=== PATIENT | male | born 1945 | race Caucasian/White ===

== ENCOUNTER 2017-07-28 10:02 | Observation (INO) ==
--- NOTE | 2017-07-28 12:01 | Electrophysiology H & P ---
<Ray Singh R - Last Filed: 07/28/17 11:57> Date of Encounter: 07/28/17 Time of Encounter: 11:57 Assessment and Plan (1) Encounter for monitoring anti-arrhythmic therapy Current Visit: Yes Status: Acute Admitted for Rythmol initation 150mg [id number] due to symptomatic PAF. Anticoagulated on Eliquis, no missed doses in past 30 days. Continue Lopressor 50mg BID. Echo 01/2016 EF preserved. Mild mitral regurgitation. Mild-moderate pulmonic regurgitation. Normal left atrial size. Stress test 05/2017 negative for ischemia or infarct. Check CBC, BMP, Mag, obtain baseline EKG. Daily EKGs while inpt to monitor QRS. Will need monitored for 5 doses. I will discuss and review with Dr. Pravin Altamirano and make changes as necessary. (2) Atrial fibrillation Current Visit: No Status: Chronic As above, rythmol initiation, continue BB, anticoagulated on Eliquis with no missed doses in 30 days. Qualifiers: Atrial fibrillation type: paroxysmal Qualified Code(s): I48.0 - Paroxysmal atrial fibrillation History of Present Illness Chief complaint: dizziness HPI: Mr. Vargas is a 71 year old male with PMH of HTN, PAF, TIA that presents today for planned antiarrhythmic initiation, Rythmol 150mg [id number]. His chief complaint is dizziness when in A-Fib. He was previously on amiodarone, experienced worsening tremors and amiodarone was stopped, has not taken since May. He reports compliance with Eliquis for >30 days, no missed doses. He denies chest pain, palpitations or dyspnea. Prior CV testing: TTE 01/30/16: Impressions: Normal LV systolic function, LVEF 55-60%. Mild concentric left ventricular hypertrophy. Indeterminate diastolic function due to atrial fibrillation. Normal right ventricular structure and function. No evidence of intracardiac shunting with agitated saline contrast. Mild mitral regurgitation. Mild-moderate pulmonic regurgitation. Unable to estimate RVSP due to lack of TR jet. Pharmacologic nuclear stress test 06/19/17: Perfusion imaging was negative for ischemia or infarct. Gated EF 48%. Past Med Surg Social Fam HX - Past Medical History Medical history: atrial fibrillation, hypertension, TIA, other Psychiatric history: no psych history - Past Surgical History Surgical History: other - Social History Smoking Status: Never smoker Smokeless Tobacco Status: No Alcohol use: none Drug use: none - Family History Father History Unknown: Yes Adopted: No Family Member Ethnicity: Non- Living Status: Cause of : kidney cancer Hx Family Cardiac Disorders: Yes (cabg with stents) Medications and Allergies Amitriptyline [Elavil] 50 mg PO HS 01/30/16 [History] Omeprazole [PriLOSEC] 20 mg PO DAILY 01/30/16 [History] Primidone [Mysoline] 25 mg PO DAILY 01/30/16 [History] Tamsulosin [Flomax] 0.4 mg PO DAILY 01/30/16 [History] hydroCHLOROthiazide [Hydrochlorothiazide] 12.5 mg PO DAILY 01/30/16 [History] Apixaban [Eliquis] 5 mg PO BID #30 tablet 02/01/16 [Rx] Aspirin 81 mg PO DAILY #30 tab.chew 02/01/16 [Rx] Metoprolol Tartrate [Lopressor] 50 mg PO BID 07/28/17 [History] 3 Allergy/AdvReac Type Severity Reaction Status Date / Time No Known Allergies Allergy Verified 01/30/16 11:57 All Systems Review: A 10-system review of systems was performed and is negative for pertinent findings except as documented above in the HPI. - Cardiovascular Cardiovascular: as per HPI, lightheadedness - Neurological Neurological: dizziness Physical Examination General: Conversant, No Apparent Distress HEENT: Atraumatic, Normocephaly, Mucus Membranes Moist Neck: No JVD, Normal carotid pulses Cardiac: Other (irregularly irregular) Lungs: Normal Breath Sounds, No Wheeze, Rales, Rhonchi Neuro: Alert and responsive, No focal deficits noted Abdomen: Soft, Non-Tender Skin: No rashes noted on visualized skin Musculoskeletal: No Chest Wall Tenderness Extremities: No Clubbing, No Cyanosis, No Edema, Normal Pulses Results Active Medications Propafenone HCl (Rhythmol) 150 mg PO Q8HR JENNY Stop: 01/27/18 16:01 - Imaging and Cardiology Stress Test: report reviewed Echo: report reviewed - VTE Reasons for not Prescribing Prophylaxis: Not indicated-Anticoagulated or INR therapeutic <Pravin Altamirano - Last Filed: 07/28/17 15:00> Date of Encounter: 07/28/17 - Attending Attestation I have personally performed a face to face evaluation on this patient. I have reviewed and agree with the care plan. History and Exam by me shows: Recurrent PAF, had previously been on amio but had side effects. Here for rythmol initiation. History of Present Illness HPI: Mr. Vargas is a 71 year old male All Systems Review: A 10-system review of systems was performed and is negative for pertinent findings except as documented above in the HPI. Physical Examination Vital Signs, Last 4 Hours Temp Pulse Resp BP Pulse Ox 07/28/17 13:12 62 135/85 07/28/17 12:37 97.5 F L 73 18 147/99 98 Results 07/28/17 12:13 07/28/17 12:13 Lab Results 07/28/17 07/28/17 12:13 12:13 WBC 6.9 Hgb 15.0 Hct 43.2 Plt Count 236 Sodium 133 L Potassium 3.8 Chloride 99 Carbon Dioxide 28 BUN 16 Creatinine 1.24 Glucose 117 H Calcium 9.3 Magnesium 2.0
[2017-07-28 12:18] LABS: Basophils # 0.1 K/mcL (0.0-0.2); Basophils % 1.2 %; Eosinophils # 0.3 K/mcL (0.0-0.6); Eosinophils % 3.9 %; Hematocrit 43.2 % (37.5-50.1); Immature Granulocytes % 0.1 % (0-4); Mean Corpuscular HGB Conc 34.7 g/dL (31.6-35.5); Mean Corpuscular Hemoglobin 30.5 pg (28.0-33.3); Mean Corpuscular Volume 87.8 fL (83.0-100.0); Mean Platelet Volume 10.1 fL (9.4-12.4); Monocytes % 14.6 %; Neutrophils # 3.6 K/mcL (1.6-8.9); Platelet Count 236 K/mcL (140-400); Red Blood Count 4.92 M/mcL (4.19-5.50); Red Cell Distribution Width 13.2 % (11.5-14.5); Segmented Neutrophils % 51.2 %
[2017-07-28 12:43] LABS: BUN/Creatinine Ratio 13 (6-26); Blood Urea Nitrogen 16 mg/dL (8-23); Calcium 9.3 mg/dL (8.6-10.3); Carbon Dioxide 28 mEq/L (23-29); Chloride 99 mEq/L (98-107); Glucose 117 mg/dL (70-105); Osmolality,Calculated 278 (280-300); Potassium 3.8 mEq/L (3.5-5.1); Sodium 133 mEq/L (136-145); eGFR For African Americans > 60 (> 60); eGFR For Non-African Americans 57 (> 60)
[2017-07-28] MEDS: Apixaban 5 MG TABLET PO SCH (20:04)
--- NOTE | 2017-07-28 21:07 | Electrocardiograph Report ---
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
[2017-07-29] MEDS: Apixaban 5 MG TABLET PO SCH ×2 (08:30→21:32)
[2017-07-29] MEDS: Aspirin 81 MG TAB.CHEW PO SCH (08:30)
[2017-07-29] MEDS: Primidone 50 MG TABLET PO SCH (08:31)
[2017-07-29] MEDS: hydroCHLOROthiazide 25 MG TABLET PO SCH (08:31)
--- NOTE | 2017-07-29 11:07 | Electrophysiology ProgressNote ---
Date of Encounter: 07/29/17 Time of Encounter: 10:57 Assessment and Plan (1) Encounter for monitoring anti-arrhythmic therapy Current Visit: Yes Status: Acute Admitted for Rythmol initation 150mg [id number] due to symptomatic PAF. S/P 3 Rythmol doses, remains in A-Fib. Continue Lopressor 50mg BID. Echo 01/2016 EF preserved. Mild mitral regurgitation. Mild-moderate pulmonic regurgitation. Normal left atrial size. Stress test 05/2017 negative for ischemia or infarct. CBC, BMP, Mag stable. Baseline EKG 07/28/17 A-Fib, rate 69, QRS 101ms. EKG 07/29/17 A-Fib, rate 79, QRS 109ms. Stable. Daily EKGs while inpt to monitor QRS. 5th dose of Rythmol will be tonight. If continues to be in A-Fib will need DCCV tomorrow. Anticoagulated on Eliquis, no missed doses in past 30 days, so no MAX warranted. Tentative D/C tomorrow if converts to SR. (2) Atrial fibrillation Current Visit: No Status: Chronic As above, rythmol initiation, continue BB, anticoagulated on Eliquis with no missed doses in 30 days. Qualifiers: Atrial fibrillation type: paroxysmal Qualified Code(s): I48.0 - Paroxysmal atrial fibrillation Discussion w patient/family: The assessment and plan as outlined above was discussed with the patient and/or family members who expressed understanding and agreement. All questions were answered. Thank you for involving us in the care of your patient. Please call with any questions. I will discuss all the above with Dr. Pravin Altamirano and make changes as necessary. Subjective Principal diagnosis: PAF Interval history: s/p 3 doses of Rythmol. Pt remains in A-Fib. Denies any cardiac complaints this AM. Objective Vital Signs, Last 4 Hours Temp Pulse Resp BP Pulse Ox 07/29/17 10:20 98.1 F 80 14 117/75 93 Vital Signs Temp Pulse Resp BP Pulse Ox 07/29/17 10:20 98.1 F 80 14 117/75 93 07/29/17 05:00 98 F 72 18 117/80 95 07/29/17 01:00 98 F 78 18 118/77 95 07/28/17 20:15 97 07/28/17 19:18 98 F 65 18 120/82 96 07/28/17 15:13 97.9 F 71 17 125/83 97 07/28/17 13:12 62 135/85 07/28/17 12:37 97.5 F L 73 18 147/99 98 Intake and Output 07/28/17 07/29/17 07/29/17 23:59 07:59 15:59 Intake Total 120 / 120 500 / 500 Balance 120 / 120 500 / 500 Intake: Oral 120 / 120 500 / 500 Other: Meal Breakfast Percent of Meal Consumed 100% # Voids 1 Weight 95.6 kg Patient Weight 07/29/17 23:59 Weight 95.6 kg General: Conversant, No Apparent Distress HEENT: Atraumatic, Normocephaly, Mucus Membranes Moist Neck: No JVD, Normal carotid pulses Cardiac: Other (irregularly irregular) Lungs: Normal Breath Sounds, No Wheeze, Rales, Rhonchi Neuro: Alert and responsive, No focal deficits noted Abdomen: Soft, Non-Tender Skin: No rashes noted on visualized skin Musculoskeletal: No Chest Wall Tenderness Extremities: No Clubbing, No Cyanosis, No Edema, Normal Pulses Results 07/28/17 12:13 07/28/17 12:13 Lab Results 07/28/17 07/28/17 12:13 12:13 WBC 6.9 Hgb 15.0 Hct 43.2 Plt Count 236 Sodium 133 L Potassium 3.8 Chloride 99 Carbon Dioxide 28 BUN 16 Creatinine 1.24 Glucose 117 H Calcium 9.3 Magnesium 2.0 Short CBC 07/28/17 Range/Units 12:13 WBC 6.9 (4.3-11.1) K/mcL Hgb 15.0 (12.9-16.9) g/dL Hct 43.2 (37.5-50.1) % Plt Count 236 (140-400) K/mcL Neutrophils # 3.6 (1.6-8.9) K/mcL BMP 07/28/17 Range/Units 12:13 Sodium 133 L (136-145) mEq/L Potassium 3.8 (3.5-5.1) mEq/L Chloride 99 (98-107) mEq/L Carbon Dioxide 28 (23-29) mEq/L BUN 16 (8-23) mg/dL Creatinine 1.24 (0.70-1.30) mg/dL Glucose 117 H (70-105) mg/dL Calcium 9.3 (8.6-10.3) mg/dL Active Medications Amitriptyline HCl (Elavil) 50 mg PO HS [facility] Stop: 01/27/18 21:01 Last Admin: 07/28/17 20:03 Dose: 50 mg Apixaban (Eliquis) 5 mg PO BID JENYN Stop: 01/27/18 21:01 Last Admin: 07/29/17 08:30 Dose: 5 mg Aspirin (Aspirin) 81 mg PO DAILY JENNY Stop: 01/28/18 09:01 Last Admin: 07/29/17 08:30 Dose: 81 mg Atorvastatin Calcium (Lipitor) 40 mg PO HS [facility] Stop: 01/27/18 21:01 Last Admin: 07/28/17 20:04 Dose: 40 mg Hydrochlorothiazide (Hydrochlorothiazide) 12.5 mg PO DAILY [facility] Stop: 01/28/18 09:01 Last Admin: 07/29/17 08:31 Dose: 12.5 mg Metoprolol Tartrate (Lopressor) 50 mg PO BID [facility] Stop: 01/27/18 21:01 Last Admin: 07/29/17 08:31 Dose: 50 mg Omeprazole (Prilosec) 20 mg PO DAILY [facility] PRN Reason: Protocol Stop: 01/28/18 09:01 Last Admin: 07/29/17 08:31 Dose: 20 mg Primidone (Mysoline) 25 mg PO DAILY [facility] Stop: 01/28/18 09:01 Last Admin: 07/29/17 08:31 Dose: 25 mg Propafenone HCl (Rhythmol) 150 mg PO Q8HR [facility] Stop: 01/27/18 16:01 Last Admin: 07/29/17 08:30 Dose: 150 mg Tamsulosin HCl (Flomax) 0.4 mg PO DAILY [facility] PRN Reason: Protocol Stop: 01/28/18 09:01 Last Admin: 07/29/17 08:30 Dose: 0.4 mg - EKG Interpretation EKG results cardiology: personally reviewed, other (24 hr tele AVG HR 84, A-Fib. ) - VTE Reasons for not Prescribing Prophylaxis: Not indicated-Anticoagulated or INR therapeutic Consult Discharge Plan - Plan Referrals: Carlos Duncan DO [Primary Care Provider] - (web request sent on 07/29/17)
--- NOTE | 2017-07-29 16:45 | Electrocardiograph Report ---
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
[2017-07-30] MEDS: Apixaban 5 MG TABLET PO SCH (08:20)
[2017-07-30] MEDS: Aspirin 81 MG TAB.CHEW PO SCH (08:20)
[2017-07-30] MEDS: hydroCHLOROthiazide 25 MG TABLET PO SCH (08:20)
[2017-07-30] MEDS: Primidone 50 MG TABLET PO SCH (08:20)
--- NOTE | 2017-07-30 10:08 | Event Note ---
Date of Encounter: 07/30/17 Time of Encounter: 10:07 - Cardiology Event Note Pt remains in A-Fib. EKGs reviewed--QRS stable s/p 6 doses of Rythmol. No missed doses of Eliquis in the past 30 days. Plan for DCCV today. If successful conversion to SR, plan to d/c home later today.
[2017-07-30 10:16] VITALS: BP 128/92
[2017-07-30] MEDS ORDERED: *HR* Midazolam HCl 5 MG/5 ML VIAL IVP ONE (14:27)
[2017-07-30] MEDS ORDERED: 0.9 % Sodium Chloride 1,000 ML ONE (14:27)
[2017-07-30] MEDS ORDERED: *HR* FentaNYL (PF) 250 MCG/5 ML VIAL ONE (14:27)
--- NOTE | 2017-07-30 14:38 | Pre-Sedation Evaluation ---
Pre-sedation evaluation - Pre-sedation checklist Date of procedure: 07/30/17 Procedure: cv Recent Vitals: Last Vital Signs Temp 97.9 F 07/30/17 10:15 Pulse 88 07/30/17 10:15 Resp 16 07/30/17 10:15 BP 128/92 07/30/17 10:15 Pulse Ox 95 07/30/17 10:15 H&P (including ROS) documented in medical record: Yes Previous reaction to sedatives/anesthetics: No Dietary Status: NPO after Midnight Airway Assessment: Patient can open mouth completely, TMJ function normal Dentition: No loose teeth or bridges Possible difficult airway: No ASA Classification *see protocol: CLASS II-Mild systemic disease Plan of Care: Pt appropriate candidate for procedure/moderate/conscious sedation , Risks/benefits of procedure/sedation discussed w/ patient/family
--- NOTE | 2017-07-30 15:27 | Discharge Summary ---
Date of Encounter: 07/30/17 Time of Encounter: 15:25 - Discharge Diagnosis (1) Encounter for monitoring anti-arrhythmic therapy Priority: Primary Status: Acute (2) Atrial fibrillation Priority: Primary Status: Chronic Qualifiers: Atrial fibrillation type: paroxysmal Qualified Code(s): I48.0 - Paroxysmal atrial fibrillation - Discharge Medications Home Medications: Amitriptyline [Elavil] 50 mg PO HS 01/30/16 [History] Omeprazole [PriLOSEC] 20 mg PO DAILY 01/30/16 [History] Primidone [Mysoline] 25 mg PO DAILY 01/30/16 [History] Tamsulosin [Flomax] 0.4 mg PO DAILY 01/30/16 [History] hydroCHLOROthiazide [Hydrochlorothiazide] 12.5 mg PO DAILY 01/30/16 [History] Apixaban [Eliquis] 5 mg PO BID #30 tablet 02/01/16 [Rx] Aspirin 81 mg PO DAILY #30 tab.chew 02/01/16 [Rx] Metoprolol Tartrate [Lopressor] 50 mg PO BID 07/28/17 [History] Propafenone [Rhythmol] 150 mg PO Q8HR tablet 07/30/17 [Rx] Allergies/Adverse Reactions: 3 Allergy/AdvReac Type Severity Reaction Status Date / Time No Known Allergies Allergy Verified 01/30/16 11:57 Procedures/tests Complete & Pending: Procedures Performed prior 72 hours Category Date Time Status CL Cardioversion [CL] Routine Lead Sustainability Specialist 07/30/17 09:15 Ordered EKG [ECG 12 lead ECG] [ECG] AM 0600 Y 07/29/17 06:00 Completed EKG [ECG 12 lead ECG] [ECG] AM 0600 Y 07/30/17 06:00 Completed EKG [ECG 12 lead ECG] [ECG] Routine Y 07/30/17 15:20 Ordered EKG [ECG 12 lead ECG] [ECG] Stat Y 07/28/17 11:54 Completed Date of admission: 07/28/17 10:32 Primary care physician: Carlos Duncan Discharging clinician: Ray Singh Anticipated date of discharge: 07/30/17 - Patient Status Disposition: Home, Self-Care Condition: Fair Functional capacity at discharge: independent ambulation Overall status at discharge: patient is back to baseline - Discharge Instructions Follow Up With: Kristie Medina PROCESSING ARCHIVIST [Partnered Physician] - 08/03/17 10:35 am - Diet and Activity Activity: increase activity as tolerated Diet: low fat, low cholesterol - Hospital Course Hospital course: Mr. Vargas is a 71 year old male admitted for Rythmol initation 150mg [id number] due to symptomatic PAF. Anticoagulated on Eliquis, no missed doses in past 30 days. S/P 6 Rythmol doses. Underwent successful DCCV today, now in sinus rhythm with 1st degree block. On Lopressor 50mg BID. CBC, BMP, Mag stable. Daily EKGs show stable QRS. Triglycerides 335--pt is currently not on statin, states he would like to try dietary modification first. Pt denies acute cardiac complaints. Erx sent for Rythmol. Pt being discharged home in stable condition. Will coordinate outpt follow-up. - Time Spent with Patient Total time spent providing and/or coordinating discharge services: Less than 30 minutes Physical Examination Vital Signs Temp Pulse Resp BP Pulse Ox 07/30/17 10:15 97.9 F 88 16 128/92 95 07/30/17 06:23 97.7 F 87 16 124/80 96 07/30/17 03:36 97.5 F L 79 17 107/71 96 07/29/17 23:01 97.8 F 80 17 120/73 95 07/29/17 20:41 98.1 F 80 17 119/80 93 07/29/17 16:23 97.5 F L 67 16 126/81 96 Intake and Output 07/29/17 07/30/17 07/30/17 23:59 07:59 15:59 Other: Meal NPO LUNCH # Voids 1 1 Weight 95.424 kg Patient Weight 07/30/17 23:59 Weight 95.424 kg General: Conversant, No Apparent Distress HEENT: Atraumatic, Normocephaly, Mucus Membranes Moist Neck: No JVD, Normal carotid pulses Cardiac: Reg Rate and Rhythm, Normal S1 and S2, No Murmur Lungs: Normal Breath Sounds, No Wheeze, Rales, Rhonchi Neuro: Alert and responsive, No focal deficits noted Abdomen: Soft, Non-Tender Skin: No rashes noted on visualized skin Musculoskeletal: No Chest Wall Tenderness Extremities: No Clubbing, No Cyanosis, No Edema, Normal Pulses - VTE Reasons for not Prescribing Prophylaxis: Not indicated-Anticoagulated or INR therapeutic
--- NOTE | 2017-07-30 20:29 | Electrocardiograph Report ---
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
--- NOTE | 2017-07-31 06:38 | Electrocardiograph Report ---
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
== END 2017-07-30 18:16 | disposition home or self-care (01) ==
LOC: 2ANU
PROVIDERS: ADMIT Internal Medicine Clinical Cardiac Electrophysiology; ATTEND Internal Medicine Clinical Cardiac Electrophysiology

== ENCOUNTER 2017-08-30 15:41 | Observation (INO) ==
--- NOTE | 2017-08-30 16:08 | Emergency Department Note ---
Disposition Clinical Impression: Near syncope Atrial fibrillation Qualifiers: Atrial fibrillation type: chronic Qualified Code(s): I48.2 - Chronic atrial fibrillation Disposition: Admitted As Inpatient Condition: Fair Time of Disposition: 17:45 SOB HPI - General Chief Complaint: ED Shortness of Breath/Dyspnea Stated Complaint: MISHEL Time Seen by Provider: 08/30/17 15:51 Source: patient Mode of arrival: ambulatory Limitations: no limitations Nursing Notes Reviewed: Yes Vital Signs Reviewed: Yes - History of Present Illness 71-year-old male with past medical history of persistent atrial fibrillation status post cardioversion on 08/24/17 presents to emergency room with complaint of shortness of breath, diaphoresis, weakness for one episode this afternoon starting at approximately 2:15. Currently during time of interview, patient is asymptomatic and has only mild complaint of weakness. He has had episodes like these in the past when he goes and atrophic fibrillation with rapid jugular response, however he does state this one is worse than usual. He states that during his A. fib RVR episodes he does not feel any symptoms of palpitations, chest pain. He states that he did make a follow-up appointment with his primary care physician on Thursday when it was noted he was back and atrial fibrillation however was rate controlled by that time. He is anticoagulated on Eliquis and takes amiodarone for his rate control. Denies any current symptoms of chest pain, shortness breath, fevers, chills, nausea, vomiting, does admit to mild cough during these episodes. Pt Subjective Complaint: shortness of breath - Related Data Home Medications Medication Instructions Recorded Confirmed Amitriptyline [Elavil] 50 mg PO HS 01/30/16 08/30/17 Omeprazole [PriLOSEC] 20 mg PO DAILY 01/30/16 08/30/17 Primidone [Mysoline] 25 mg PO DAILY 01/30/16 08/30/17 Tamsulosin [Flomax] 0.4 mg PO DAILY 01/30/16 08/30/17 hydroCHLOROthiazide 12.5 mg PO DAILY 01/30/16 08/30/17 [Hydrochlorothiazide] Ascorbic Acid [Vitamin C] 500 mg PO DAILY 08/17/17 08/30/17 Cholecalciferol (D-3) [Vitamin D] 1,000 unit PO DAILY 08/17/17 08/30/17 Multivitamin [One Daily 1 each PO DAILY 08/17/17 08/30/17 Multivitamin] Potassium 99 mg PO DAILY 08/17/17 08/30/17 Turmeric Root Extract [Turmeric] 1,000 mg PO DAILY 08/17/17 08/30/17 Ubidecarenone [Co Q-10] 200 mg PO DAILY 08/17/17 08/30/17 Previous Rx's Medication Instructions Recorded Apixaban [Eliquis] 5 mg PO BID #30 tablet 02/01/16 Amiodarone [Cordarone] 200 mg PO BID #60 tablet 08/24/17 Metoprolol XL (24 HR) Succ [Toprol 75 mg PO DAILY #45 tab.er.24h 08/24/17 Xl] Allergies Allergy/AdvReac Type Severity Reaction Status Date / Time No Known Allergies Allergy Verified 08/17/17 12:32 All systems ED: reviewed and negative except as stated. Review of Systems: As Per HPI Past Medical History - Past Medical History Medical history: Reports: atrial fibrillation, hypertension, TIA, other Surgical history: Reports: other Psychiatric history: Reports: no psych history - Social History Smoking Status: Never smoker Smokeless Tobacco Status: No Alcohol use: Reports: none Drug use: Reports: none Physical Exam - General Limitations: no limitations General appearance: alert, in no apparent distress - Head Head exam: atraumatic, normocephalic, normal inspection - Eye Eye exam: Present: normal appearance, PERRL, EOMI - Neck Neck exam: Present: normal inspection, full ROM, trachea midline - Chest Chest inspection: Present: normal inspection - Respiratory Respiratory exam: Present: normal lung sounds bilaterally. Absent: respiratory distress - Cardiovascular Cardiovascular exam: Present: regular rate, irregular rhythm, normal heart sounds - Abdominal Exam Abdominal exam: Present: soft, Non-Tender. Absent: tenderness, distention, guarding, rebound, rigidity - Extremities Exam Extremities exam: Present: normal inspection, full ROM. Absent: tenderness, pedal edema - Neurological Exam Neurological exam: Present: alert, oriented X3. Absent: motor sensory deficit - Psychiatric Psychiatric exam: Present: normal affect, normal mood - Skin Skin exam: Present: warm, dry, intact, normal color Course Course Narrative: We will obtain EKG, chest x-ray, lab work of CBC, BMP, troponin. We will also obtain a CT of the head due to fall with abrasion on anticoagulation. Vital Signs Temperature 97.8 F 08/30/17 15:44 Pulse Rate 75 08/30/17 15:44 Respiratory Rate 20 08/30/17 15:44 Blood Pressure 123/86 08/30/17 15:44 O2 Sat by Pulse Oximetry 98 08/30/17 15:44 Temperature 97.8 F 08/30/17 22:58 Pulse Rate 75 08/30/17 22:58 Respiratory Rate 15 08/30/17 22:58 Blood Pressure 141/81 08/30/17 22:58 O2 Sat by Pulse Oximetry 94 08/30/17 22:58 Oxygen Delivery Oxygen Delivery Room Air Shortness of Breath/Dyspnea - MDM Narrative Medical decision making narrative: 71-year-old male presents emergency department with an episode of diaphoresis, shortness of breath, fatigue. He was recently discharged this hospital for A. fib RVR which was cardioverted on 08/24/17. EKG emergency Department does reveal atrial fibrillation with rate controlled and 70s. Chest x-ray negative for acute process and lab results returning unremarkable including troponin, CBC, BMP. BNP was mildly elevated at 273. We did discuss with hospitalist possible admission for near-syncope, dyspnea. Hospitalist is agreeable. - Lab Data Result diagrams: 08/30/17 16:12 08/30/17 16:12 Lab Results 08/30/17 08/30/17 08/30/17 Range/Units 16:12 16:12 16:12 WBC 8.4 (4.3-11.1) K/mcL RBC 4.01 L (4.19-5.50) M/mcL Hgb 12.1 L (12.9-16.9) g/dL Hct 37.0 L (37.5-50.1) % MCV 92.3 (83.0-100.0) fL MCH 30.2 (28.0-33.3) pg MCHC 32.7 (31.6-35.5) g/dL RDW 13.7 (11.5-14.5) % Plt Count 391 (140-400) K/mcL MPV 9.6 (9.4-12.4) fL Immature Gran % 0.8 (0-4) % Seg Neutrophils % 69.1 % Lymphocytes % 15.3 % Monocytes % 8.4 % Eosinophils % 5.3 % Basophils % 1.1 % Neutrophils # 5.8 (1.6-8.9) K/mcL Lymphocytes # 1.3 (0.6-4.6) K/mcL Monocytes # 0.7 (0.0-1.3) K/mcL Eosinophils # 0.5 (0.0-0.6) K/mcL Basophils # 0.1 (0.0-0.2) K/mcL Sodium 133 L (136-145) mEq/L Potassium 4.0 (3.5-5.1) mEq/L Chloride 100 (98-107) mEq/L Carbon Dioxide 26 (23-29) mEq/L BUN 19 (8-23) mg/dL Creatinine 1.36 H (0.70-1.30) mg/dL Est GFR ( Amer) > 60 (> 60) Est GFR (Non-Af Amer) 52 L (> 60) BUN/Creatinine Ratio 14 (6-26) Glucose 136 H (70-105) mg/dL Calculated Osmolality 280 (280-300) Lactic Acid 1.5 (0.5-2.2) mmol/L Calcium 9.6 (8.6-10.3) mg/dL Troponin I < 0.03 (< 0.04) ng/mL B-Natriuretic Peptide (Less than 100) pg/mL 08/30/17 Range/Units 16:12 WBC (4.3-11.1) K/mcL RBC (4.19-5.50) M/mcL Hgb (12.9-16.9) g/dL Hct (37.5-50.1) % MCV (83.0-100.0) fL MCH (28.0-33.3) pg MCHC (31.6-35.5) g/dL RDW (11.5-14.5) % Plt Count (140-400) K/mcL MPV (9.4-12.4) fL Immature Gran % (0-4) % Seg Neutrophils % % Lymphocytes % % Monocytes % % Eosinophils % % Basophils % % Neutrophils # (1.6-8.9) K/mcL Lymphocytes # (0.6-4.6) K/mcL Monocytes # (0.0-1.3) K/mcL Eosinophils # (0.0-0.6) K/mcL Basophils # (0.0-0.2) K/mcL Sodium (136-145) mEq/L Potassium (3.5-5.1) mEq/L Chloride (98-107) mEq/L Carbon Dioxide (23-29) mEq/L BUN (8-23) mg/dL Creatinine (0.70-1.30) mg/dL Est GFR ( Amer) (> 60) Est GFR (Non-Af Amer) (> 60) BUN/Creatinine Ratio (6-26) Glucose (70-105) mg/dL Calculated Osmolality (280-300) Lactic Acid (0.5-2.2) mmol/L Calcium (8.6-10.3) mg/dL Troponin I (< 0.04) ng/mL B-Natriuretic Peptide 293 H (Less than 100) pg/mL Attestation Statement - Attestation Attestation: I, Pravin Quach, examined this patient and my medical decision-making was reviewed with the POOL SERVICER/PA/Advanced Practice Nurse/Resident Physician. I agree with the documented findings, disposition and treatment plan as described except to the extent set forth below. 71-year-old male presents emergency Department with concerns of acute onset shortness of breath and diaphoresis. Patient states he felt near syncopal while ambulating. He was recently admitted to the hospital for age fibrillation with RVR. He started new medications for his A. fib with RVR within the past week. Initial troponin negative. Initial EKG shows which fibrillation with a rate of 66 without evidence of STEMI.
[2017-08-30 16:21] LABS: Basophils # 0.1 K/mcL (0.0-0.2); Basophils % 1.1 %; Eosinophils # 0.5 K/mcL (0.0-0.6); Eosinophils % 5.3 %; Hemoglobin 12.1 g/dL (12.9-16.9); Immature Granulocytes % 0.8 % (0-4); Lymphocytes # 1.3 K/mcL (0.6-4.6); Lymphocytes % 15.3 %; Mean Corpuscular HGB Conc 32.7 g/dL (31.6-35.5); Mean Corpuscular Hemoglobin 30.2 pg (28.0-33.3); Mean Corpuscular Volume 92.3 fL (83.0-100.0); Mean Platelet Volume 9.6 fL (9.4-12.4); Monocytes # 0.7 K/mcL (0.0-1.3); Monocytes % 8.4 %; Neutrophils # 5.8 K/mcL (1.6-8.9); Platelet Count 391 K/mcL (140-400); Red Blood Count 4.01 M/mcL (4.19-5.50); Red Cell Distribution Width 13.7 % (11.5-14.5); Segmented Neutrophils % 69.1 %
[2017-08-30 16:52] LABS: Troponin I < 0.03 ng/mL (< 0.04)
[2017-08-30 16:53] LABS: BUN/Creatinine Ratio 14 (6-26); Blood Urea Nitrogen 19 mg/dL (8-23); Calcium 9.6 mg/dL (8.6-10.3); Carbon Dioxide 26 mEq/L (23-29); Chloride 100 mEq/L (98-107); Glucose 136 mg/dL (70-105); Osmolality,Calculated 280 (280-300); Sodium 133 mEq/L (136-145); eGFR For African Americans > 60 (> 60); eGFR For Non-African Americans 52 (> 60)
[2017-08-30] MEDS ORDERED: Naloxone 0.4 MG/ML INJ IVP PRN (18:05)
--- NOTE | 2017-08-30 18:17 | Internal Med History&Physical ---
Date of Encounter: 08/30/17 Time of Encounter: 18:11 Assessment and Plan (1) COPD (chronic obstructive pulmonary disease) Current visit: Yes Status: Acute Presents today with dyspnea on exertion. No prior h/o COPD, but he reports a non-productive cough and wheezing for the last couple of days. Today's CXR show hyperinflation of his lungs. He is diminished in all lung cardenas per auscultation. He is resting comfortable on room air without respiratory distress. -Xopenex -IV steroids -Respiratory support per [place] PRN; goal to maintain spo2 >92% Qualifiers: COPD type: unspecified COPD Qualified Code(s): J44.9 - Chronic obstructive pulmonary disease, unspecified (2) Dyspnea on exertion Current visit: Yes Status: Acute (3) Atrial fibrillation Current visit: Yes Status: Chronic Presents today with dyspnea on exertion. Denies any palpitation, tachycardia, or chest pain. H/O A-fib with RVR unaware of whether or not he was in RVR when dyspnea began. Was recently treated for A-fib RVR and required cardioversion during his last admission. Additionally, he was switched from Rhythmol to Amiodarone after finding out that he had an EF of 30% with severe global left ventricular dysfunction. Ekg today shows A-fib rate control with no ST changes in comparison to prior EKG. Denies chest pain and remains hemodynamically stable. I suspect that his a-fib further exacerbated his dyspnea today. However, he reports that he cannot feel when he is in RVR and todays EKG shows rate control -ambulate with tele -trend troponins -Continue amiodarone -Continue BB -CBCD, BMP in am Qualifiers: Atrial fibrillation type: chronic Qualified Code(s): I48.2 - Chronic atrial fibrillation (4) Cardiomyopathy Current visit: Yes Status: Acute TTE on last admission with LVEF of 30% with global hypokenesis, mild concentric LVH, mildpmoderate MR, mild SD Recent stress tests on 08/24/17 negative for ischemia -Continue BB Qualifiers: Cardiomyopathy type: unspecified Qualified Code(s): I42.9 - Cardiomyopathy , unspecified (5) Dizziness Current visit: Yes Status: Resolved (6) HTN (hypertension) Current visit: Yes Status: Acute Stable, continue Toprol-XL Qualifiers: Hypertension type: essential hypertension Qualified Code(s): I10 - Essential (primary) hypertension (7) DVT prophylaxis Current visit: Yes Status: Acute [facility] Internal Medicine - H&P: HPI Chief complaint: shortness of breath Admitted From: Home Plans for Post Hospital Care: Home History of present illness: Mr. Vargas is a 71 year old male with a PMH of atrial fibrillation, hypertension , and TIA. He presents to [facility] today after an episode of shortness of breath with exertion this afternoon. He reports that he was diaphoretic and weak throughout this event. He reports that he was walking a short distance through the parking lot at [employer] and he began to feel short of breath and lightheaded. He reports that he sat down and the symptoms eased up. He was recently admitted for A-fib RVR and during that admission he required cardioversion. He frequently goes in a out of A-fib RVR. He denies any constitutional symptoms, chest pain, abdominal pain, N/V/D, weight gain, unilateral extremity swelling or pain. He admits to a non-productive cough and some intermittent wheezing throughout the last week. CXR show hyperinflation in the lung cardenas but not acute pulmonary process. Past Med Surg Social Fam HX - Past Medical History Medical history: atrial fibrillation, hypertension, TIA, other Psychiatric history: no psych history - Past Surgical History Surgical History: other - Social History Smoking Status: Never smoker Smokeless Tobacco Status: No Alcohol use: none Drug use: none - Family History Father Adopted: No Family Member Ethnicity: Non- Living Status: Hx Family Cardiac Disorders: Yes (cabg with stents) Internal Medicine - H&P: Meds Amitriptyline [Elavil] 50 mg PO HS 01/30/16 [History] Omeprazole [PriLOSEC] 20 mg PO DAILY 01/30/16 [History] Primidone [Mysoline] 25 mg PO DAILY 01/30/16 [History] Tamsulosin [Flomax] 0.4 mg PO DAILY 01/30/16 [History] hydroCHLOROthiazide [Hydrochlorothiazide] 12.5 mg PO DAILY 01/30/16 [History] Apixaban [Eliquis] 5 mg PO BID #30 tablet 02/01/16 [Rx] Ascorbic Acid [Vitamin C] 500 mg PO DAILY 08/17/17 [History] Cholecalciferol (D-3) [Vitamin D] 1,000 unit PO DAILY 08/17/17 [History] Multivitamin [One Daily Multivitamin] 1 each PO DAILY 08/17/17 [History] Potassium 99 mg PO DAILY 08/17/17 [History] Turmeric Root Extract [Turmeric] 1,000 mg PO DAILY 08/17/17 [History] Ubidecarenone [Co Q-10] 200 mg PO DAILY 08/17/17 [History] Amiodarone [Cordarone] 200 mg PO BID #60 tablet 08/24/17 [Rx] Metoprolol XL (24 HR) Succ [Toprol Xl] 75 mg PO DAILY #45 tab.er.24h 08/24/17 [ Rx] 3 Allergy/AdvReac Type Severity Reaction Status Date / Time No Known Allergies Allergy Verified 08/17/17 12:32 All Systems PM: A 10-system review of systems was performed and is negative for pertinent findings except as documented above in the HPI. - Constitutional Constitutional: fatigue, no chills, no fever(s) - EENT Eyes: no blurry vision Nose, mouth and throat: no nasal congestion, no post-nasal drip, no sinus pain, no sinus pressure, no sore throat - Cardiovascular Cardiovascular ROS IM: dyspnea on exertion, irregular heart rhythm, lightheadedness, no chest pain, no edema, no palpitations, no paroxysmal nocturnal dyspnea, no syncope - Respiratory Respiratory: as per HPI, cough, dyspnea on exertion, wheezing, no dyspnea, no hemoptysis, no stridor, no pain on inspiration, no chest congestion, no excessive phlegm production, no change in phlegm color, no pain with cough - Gastrointestinal Gastrointestinal: no abdominal pain, no constipation, no diarrhea, no hematemesis, no hematochezia, no melena, no nausea, no vomiting - Genitourinary Genitourinary ROS male: no difficulty urinating, no dysuria, no flank pain - Musculoskeletal Musculoskeletal ROS IM: no numbness, no tingling - Integumentary Integumentary IM: no rash, no unusual bruising - Neurological Neurological ROS: no confusion, no convulsions, no focal weakness, no numbness, no tingling, no tremor(s) - Constitutional Vitals: Temp Pulse Resp BP Pulse Ox 97.8 F 92 16 113/78 96 08/30/17 15:44 08/30/17 17:07 08/30/17 17:59 08/30/17 17:59 08/30/17 17:07 General appearance: Present: cooperative, A&O X 3, no acute distress, answers questions appropriately - Head Head exam: Present: atraumatic, normocephalic - Eye Eye exam: Present: PERRL, conjuntiva pink, sclera anicteric Pupils: Present: PERRL - Neck Neck exam general surgery: Present: supple, trachea midline. Absent: lymphadenopathy - Respiratory Respiratory exam: Present: decreased breath sounds, CTAB, prolonged expiratory phase. Absent: accessory muscle use, chest wall tenderness, rales, respiratory distress, rhonchi, wheezes, tachypnea - Cardiovascular Cardiovascular exam: Present: irregular rhythm, +S1, +S2. Absent: diastolic murmur, gallop, rubs, systolic murmur, tachycardia - GI/Abdominal GI/Abdominal exam: Present: normal bowel sounds, soft, no peritoneal signs. Absent: distended, tenderness - Extremities Exam Extremities exam: Present: warm, radial pulses palpable and symmetrical. Absent : calf tenderness, cyanotic, pedal edema - Neurological Exam Neurological exam: Present: alert, oriented X3. Absent: facial droop, speech deficit - Skin Skin exam: Present: dry, intact Internal Med - H&P Results - Labs CBC & Chem 7: 08/30/17 16:12 08/30/17 16:12 - EKG Data -: EKG Interpreted by Myself - EKG Data Prior EKG available for review: yes EKG comments: A-fib rate control 08/30/17 18:25 - Impressions Impressions Chest X-Ray 08/30/17 15:51 IMPRESSION: Hyperinflation of the lung cardenas. Linear changes in the lung bases which may be chronic. No obvious superimposed acute cardiopulmonary process. D/ / 08/30/2017 16:28:38 Estefanía Cantu MD / [email or web address] Interpreting Provider: Estefanía Cantu MD Head CT 08/30/17 16:11 IMPRESSION: Stable CT brain with no acute intracranial abnormality. D/ / Roque Hester MD / Roque Hester MD Interpreting Provider: Roque Hester MD - VTE Reasons for not Prescribing Prophylaxis: Not indicated-Anticoagulated or INR therapeutic
--- NOTE | 2017-08-30 20:13 | Event Note ---
Date of Encounter: 08/30/17 Time of Encounter: 20:05 Patient was seen and examined. I agree with the H&P as written by Dov Lara NP. Patient with history of afib, htn, TIA. Comes in with SOB on exertion since earlier this afternoon. Reports lightheadedness and diaphoresis. Sxms improved with rest. Has non productive cough and wheezing. CXR with no acute findings. Recently here with afib with RVR s/p DCCV. Has wheezing on exam and reports cough. Trial of IV steroids, nebs. O2 support as needed. ambulate patient to see if goes into afib with RVR. c/w amidoarone, metoprolol, eliquis. EKG on arrival afib but rate controlled. Check limited echo. Echo 08/19/2017 showed LVEF 30%. Mild concentric left ventricular hypertrophy. Global left ventricular systolic dysfunction. Right ventricle appears normal in size and near normal in function. Mild-moderate mitral regurgitation. Mild pulmonic regurgitation. No evidence of pulmonary hypertension. That echo was while in afib with RVR. Stress test on 08/22/17 negative for ischemia.
[2017-08-30] MEDS: *HR* Amiodarone 200 MG TABLET PO SCH (20:54)
[2017-08-30] MEDS: Apixaban 5 MG TABLET PO SCH (20:54)
[2017-08-30] MEDS: Levalbuterol Neb 1.25 MG/3 ML IH SCH (22:33)
[2017-08-30] MEDS: MethylPREDNISolone 40 MG/ML VIAL IVP SCH (22:56)
[2017-08-31] MEDS: Levalbuterol Neb 1.25 MG/3 ML IH SCH ×4 (03:54→21:58)
[2017-08-31 05:43] LABS: Basophils % 0.3 %; Eosinophils % 0.1 %; Hematocrit 37.5 % (37.5-50.1); Hemoglobin 12.5 g/dL (12.9-16.9); Lymphocytes # 0.7 K/mcL (0.6-4.6); Lymphocytes % 7.2 %; Mean Corpuscular HGB Conc 33.3 g/dL (31.6-35.5); Mean Corpuscular Volume 89.9 fL (83.0-100.0); Mean Platelet Volume 9.9 fL (9.4-12.4); Monocytes # 0.1 K/mcL (0.0-1.3); Monocytes % 0.8 %; Neutrophils # 8.8 K/mcL (1.6-8.9); Platelet Count 402 K/mcL (140-400); Red Blood Count 4.17 M/mcL (4.19-5.50); Red Cell Distribution Width 13.7 % (11.5-14.5); Segmented Neutrophils % 90.6 %
[2017-08-31 06:08] LABS: BUN/Creatinine Ratio 16 (6-26); Blood Urea Nitrogen 20 mg/dL (8-23); Calcium 9.5 mg/dL (8.6-10.3); Carbon Dioxide 25 mEq/L (23-29); Chloride 102 mEq/L (98-107); Glucose 156 mg/dL (70-105); Osmolality,Calculated 290 (280-300); Potassium 4.3 mEq/L (3.5-5.1); Sodium 137 mEq/L (136-145); eGFR For African Americans > 60 (> 60); eGFR For Non-African Americans 58 (> 60)
[2017-08-31] MEDS: MethylPREDNISolone 40 MG/ML VIAL IVP SCH ×3 (07:57→23:32)
[2017-08-31] MEDS: Cholecalciferol (D-3) 1,000 UNIT TABLET PO SCH (07:58)
[2017-08-31] MEDS: *HR* Amiodarone 200 MG TABLET PO SCH ×2 (07:58→21:07)
[2017-08-31] MEDS: Multivit/Ca/Min/Fe/FA 1 TAB TABLET PO SCH (07:58)
[2017-08-31] MEDS: hydroCHLOROthiazide 25 MG TABLET PO SCH (07:58)
[2017-08-31] MEDS: Apixaban 5 MG TABLET PO SCH ×2 (07:58→21:07)
[2017-08-31] MEDS: Ascorbic Acid 500 MG TABLET PO SCH (07:58)
[2017-08-31] MEDS: Primidone 50 MG TABLET PO SCH (07:58)
[2017-08-31] MEDS: Metoprolol XL (24 HR) Succ 25 MG TAB.ER.24H PO SCH (07:58)
[2017-08-31] MEDS: Ubidecarenone [Co Q-10] 200 MG PO SCH (07:59)
[2017-08-31] MEDS: Potassium [Potassium] 99 MG PO SCH (07:59)
--- NOTE | 2017-08-31 10:42 | Internal Med Progress Note ---
Date of Encounter: 08/31/17 Time of Encounter: 10:40 - Assessment and plan (1) COPD exacerbation Current Visit: Yes Status: Acute Assessment and plan: Patient was wheezing on admission was shortness of breath. He was given steroids and Xopenex inhalers. He is currently wheeze free and on room air., Denying any shortness of breath. Will decrease steroid dose today and monitor overnight (2) Near syncope Current Visit: Yes Status: Acute Assessment and plan: Patient orthostatic blood pressure is positive, lying 161/88, sitting 143/77, lying 128/85 will administer ns 500 ml bolus and recheck orthostatics Patient reported episode at 2:15 on Thursday when he was weak diaphoretic and short of breath. He states he has episodes like this in the past and found to be in atrial fib with a rapid ventricular response Recommend close follow-up with cardiology or if another syncopal episode in- house cardiology consult inpatient (3) HTN (hypertension) Current Visit: Yes Status: Acute Assessment and plan: orthostatic Qualifiers: Hypertension type: essential hypertension Qualified Code(s): I10 - Essential (primary) hypertension (4) Dyspnea on exertion Current Visit: Yes Status: Acute Assessment and plan: Likely multifactorial in patient with history of A. fib, hypertension and TIAas well as sytolic dysfunction. Echo 2 2817 showed LVEF 30% with global left ventricular systolic dysfunction but no pulmonary hypertension Stress test negative for ischemia Symptoms improved with rest. He reported associated lightheadedness and diaphoresis Continue with an amiodarone, metipranolol and Eliquis. EKG on arrival A. fib but rate controlled. BNP 293 Chest x-ray report reviewed with hyperinflation of the lung cardenas, wheezing or changes in the lung bases which may be chronic, no obvious superimposed acute cardio pulmonary process Currently on room air and denies shortness of breath We will decrease steroids Monitor overnight Discharge in a.m. (5) Atrial fibrillation Current Visit: Yes Status: Chronic Assessment and plan: currently controlled rate with afib to aflutter on monitor ambulated without symptoms and ekg tracing from afib to aflutter Qualifiers: Atrial fibrillation type: chronic Qualified Code(s): I48.2 - Chronic atrial fibrillation (6) HLD (hyperlipidemia) Current Visit: Yes Status: Acute Assessment and plan: continue statin Qualifiers: Qualified Code(s): E78.5 - Hyperlipidemia, unspecified (7) DVT prophylaxis Current Visit: Yes Status: Acute Assessment and plan: Patient on Eliquis - Subjective Interval history: Patient sitting up in the chair. He denies any chest pain, lightheadedness, sweats, fever, chills, abdominal pain or shortness of breath. He states he is feeling a lot better. I explained we are going to check some orthostatic blood pressures and I ordered some lab work. He states he is feeling really good and could possibly go home I stated I think he needed one more day. He is in agreement. - Constitutional Vitals: Temp Pulse Resp BP Pulse Ox 97.9 F 82 15 161/88 95 08/31/17 06:59 08/31/17 09:17 08/31/17 06:59 08/31/17 09:17 08/31/17 06:59 General appearance: Present: cooperative, A&O X 3, pleasant, answers questions appropriately - Head Head exam: Present: atraumatic, normocephalic - Eye Eye exam: Present: PERRL, conjuntiva pink, sclera anicteric Pupils: Present: PERRL - Neck Neck exam general surgery: Present: supple, trachea midline. Absent: lymphadenopathy - Respiratory Respiratory exam: Present: decreased breath sounds, prolonged expiratory phase. Absent: accessory muscle use, chest wall tenderness, rales, respiratory distress, rhonchi, wheezes - Cardiovascular Cardiovascular exam: Present: RRR, +S1, +S2, tachycardia. Absent: diastolic murmur, gallop, rubs, systolic murmur Additional comments: Patient became tachypneic cardiac 116 with activity - GI/Abdominal GI/Abdominal exam: Present: normal bowel sounds, soft, no peritoneal signs. Absent: distended, tenderness - Extremities Exam Extremities exam: Present: warm, radial pulses palpable and symmetrical. Absent : calf tenderness, cyanotic, pedal edema - Neurological Exam Neurological exam: Present: alert, CN II-XII intact, oriented X3, no focal deficits. Absent: pronater drift, facial droop, speech deficit - Skin Skin exam: Present: dry, intact, normal color, warm Internal Medicine: Result - Labs CBC & Chem 7: 08/31/17 05:15 08/31/17 05:15 Labs: Short CBC 08/31/17 Range/Units 05:15 WBC 9.8 (4.3-11.1) K/mcL Hgb 12.5 L (12.9-16.9) g/dL Hct 37.5 (37.5-50.1) % Plt Count 402 H (140-400) K/mcL Neutrophils # 8.8 (1.6-8.9) K/mcL BMP 08/31/17 05:15 Sodium 137 Potassium 4.3 Chloride 102 Carbon Dioxide 25 BUN 20 Creatinine 1.22 Glucose 156 H Calcium 9.5 Cardiac Enzymes 08/30/17 08/31/17 Range/Units 22:55 05:15 Troponin I < 0.03 < 0.03 (< 0.04) ng/mL - VTE Reasons for not Prescribing Prophylaxis: Not indicated-Anticoagulated or INR therapeutic Consult Discharge Plan - Plan Additional Instructions: admitted as inpatient. Referrals: Carlos Duncan DO [Primary Care Provider] -
[2017-08-31] MEDS ORDERED: 0.9 % Sodium Chloride 500 ML IVC ONE ×2 (11:27→11:32)
[2017-08-31 12:27] LABS: Adenovirus Not Detected (Not Detect); Bordetella Pertussis Not Detected (Not Detect); Chlamydophila pneumoniae Not Detected (Not Detect); Coronavirus 229E Not Detected (Not Detect); Coronavirus HKU1 Not Detected (Not Detect); Coronavirus NL63 Not Detected (Not Detect); Coronavirus OC43 Not Detected (Not Detect); Human Metapneumovirus Not Detected (Not Detect); Human Rhinovirus/Enterovirus Not Detected (Not Detect); Influenza A Subtype 2009 H1 Not Detected (Not Detect); Influenza A Untypeable Not Detected (Not Detect); Influenza B Not Detected (Not Detect); Mycoplasma pneumoniae Not Detected (Not Detect); Parainfluenza Virus 1 Not Detected (Not Detect); Parainfluenza Virus 2 Not Detected (Not Detect); Parainfluenza Virus 3 Not Detected (Not Detect); Parainfluenza Virus 4 Not Detected (Not Detect); Respiratory Syncytial Virus Not Detected (Not Detect)
--- NOTE | 2017-08-31 20:13 | Electrocardiograph Report ---
[address] [place], [place] [address] Test Date: 2017-08-30 Pat Name: Carlos Vargas Department: 104 Room: 3B23 Gender: M [employer]: : 1945 Requested By: Pravin Quach Order Number: [id number] Reading MD: Martinez Dwyer MD Measurements Intervals Perry Rate: 66 P: VA: 0 QRS: -11 QRSD: 97 T: 21 QT: 417 QTc: 430 Interpretive Statements ATRIAL FIBRILLATION Poor R wave progression Electronically Signed On 08-31-2017 20:12:13 EDT by Martinez Dwyer MD
[2017-09-01] MEDS: Levalbuterol Neb 1.25 MG/3 ML IH SCH ×4 (03:46→21:50)
[2017-09-01 06:34] LABS: Hemoglobin 11.5 g/dL (12.9-16.9); Mean Corpuscular HGB Conc 31.9 g/dL (31.6-35.5); Mean Corpuscular Hemoglobin 29.3 pg (28.0-33.3); Mean Corpuscular Volume 91.6 fL (83.0-100.0); Mean Platelet Volume 10.3 fL (9.4-12.4); Platelet Count 418 K/mcL (140-400); Red Blood Count 3.93 M/mcL (4.19-5.50); Red Cell Distribution Width 13.9 % (11.5-14.5)
[2017-09-01 06:39] LABS: BUN/Creatinine Ratio 20 (6-26); Blood Urea Nitrogen 27 mg/dL (8-23); Calcium 9.2 mg/dL (8.6-10.3); Carbon Dioxide 22 mEq/L (23-29); Chloride 103 mEq/L (98-107); Glucose 151 mg/dL (70-105); Osmolality,Calculated 290 (280-300); Potassium 4.1 mEq/L (3.5-5.1); Sodium 136 mEq/L (136-145); eGFR For African Americans > 60 (> 60); eGFR For Non-African Americans 53 (> 60)
[2017-09-01] MEDS: Primidone 50 MG TABLET PO SCH (08:11)
[2017-09-01] MEDS: MethylPREDNISolone 40 MG/ML VIAL IVP SCH ×3 (08:11→19:12)
[2017-09-01] MEDS: Multivit/Ca/Min/Fe/FA 1 TAB TABLET PO SCH (08:11)
[2017-09-01] MEDS: Apixaban 5 MG TABLET PO SCH ×2 (08:11→20:15)
[2017-09-01] MEDS: Cholecalciferol (D-3) 1,000 UNIT TABLET PO SCH (08:11)
[2017-09-01] MEDS: hydroCHLOROthiazide 25 MG TABLET PO SCH (08:11)
[2017-09-01] MEDS: *HR* Amiodarone 200 MG TABLET PO SCH ×2 (08:11→20:15)
[2017-09-01] MEDS: Ascorbic Acid 500 MG TABLET PO SCH (08:11)
[2017-09-01] MEDS: Metoprolol XL (24 HR) Succ 25 MG TAB.ER.24H PO SCH (08:11)
[2017-09-01] MEDS: Potassium [Potassium] 99 MG PO SCH (08:12)
[2017-09-01] MEDS: Ubidecarenone [Co Q-10] 200 MG PO SCH (08:12)
--- NOTE | 2017-09-01 18:09 | Internal Med Progress Note ---
Date of Encounter: 09/01/17 Time of Encounter: 10:05 - Assessment and plan (1) COPD exacerbation Current Visit: Yes Status: Acute Assessment and plan: Patient was admitted for wheezing and shortness of breath. Patient reports that he had been discharged approximately one week ago. He was visiting traditions was walking from his car began having dyspnea, dyspnea on exertion, diaphoresis that lasted 3-4 minutes. He denied any chest pain or palpitations. He presented to the emergency department has been treated with steroids and Xopenex inhalers. His lungs are clear today and he states that he feels that the steroids are making him jittery. I decreased the steroid dose to 40 mg daily. Patient will be sent home on a taper. Continue IV Solu-Medrol, Xopenex inhalers, O2 as needed to maintain sats greater than 92%. (2) Near syncope Current Visit: Yes Status: Acute Assessment and plan: Patient with positive orthostatic vital signs. He denies any dizziness or near syncope at this time. He denies any weakness, diaphoresis, or shortness of breath. Continue telemetry Patient is in A. fib/A flutter. Cardiology consult is pending. (3) HTN (hypertension) Current Visit: Yes Status: Acute Assessment and plan: Well-controlled. Continue home medications. Patient did have positive orthostatic vital signs. Continue to monitor. Qualifiers: Hypertension type: essential hypertension Qualified Code(s): I10 - Essential (primary) hypertension (4) Dyspnea on exertion Current Visit: Yes Status: Acute Assessment and plan: Patient with dyspnea, CUMMINGS on admission. Likely related to COPD exacerbation, history of A. fib/A flutter. Patient had an echocardiogram in July, that showed LVEF of 30% with global LV systolic dysfunction. Patient stress test on 08/22/17 was negative for ischemia. Limited echo today showed improved LVEF as well as LV systolic function. Patient reports the symptoms only lasted approximately 3-4 minutes, but were concerning and with associated lightheadedness and diaphoresis. Symptoms resolved with rest. Patient does have mildly elevated BNP, most likely due to demand ischemia from A. fib and 30% LVEF. Chest x-ray showed hyperinflation lungs, changes in lung bases which may be chronic and no obvious super imposed acute process. Patient is not requiring supplemental oxygen currently denies shortness of breath. He denies shortness of breath with ambulation despite A. fib/A flutter. Continue telemetry Cardiology consultation pending. (5) Atrial fibrillation Current Visit: Yes Status: Chronic Assessment and plan: Chronic. Rate control currently. Continue amiodarone and Eliquis. Qualifiers: Atrial fibrillation type: chronic Qualified Code(s): I48.2 - Chronic atrial fibrillation (6) HLD (hyperlipidemia) Current Visit: Yes Status: Acute Qualifiers: Qualified Code(s): E78.5 - Hyperlipidemia, unspecified (7) DVT prophylaxis Current Visit: Yes Status: Acute (8) Elevated brain natriuretic peptide (BNP) level Current Visit: Yes Status: Acute Assessment and plan: BNP 293. Likely elevated due to chronic A. fib and EF of 40-45% on Limited echo today. Patient also has improved LV systolic function.. No trend to compare. Patient appears to be euvolemic, lungs are clear, no peripheral edema. Continue telemetry. - Time Spent With Patient less than 15 minutes - Subjective Interval history: Patient was seen and assessed at bedside 10:05 AM. Patient reports feeling jumpy and some palpitations, he blames this on the Solu-Medrol. I will decrease the dose. Patient states that he was discharged 1 week ago and began having increasing dyspnea and dyspnea on exertion, diaphoresis that lasted 3-4 minutes prior to arrival. Currently denies any chest pain or shortness of breath. Patient reports that his pulse was really high last night, states he did not feel any palpitations or chest pain, no shortness of breath. He was aware that his pulse was too high. - Constitutional Vitals: Temp Pulse Resp BP Pulse Ox 97.4 F L 79 16 138/78 97 09/01/17 15:47 09/01/17 15:47 09/01/17 16:13 09/01/17 15:47 09/01/17 16:13 General appearance: Present: cooperative, A&O X 3, pleasant, no acute distress, answers questions appropriately - Head Head exam: Present: atraumatic, normal inspection, normocephalic - Eye Eye exam: Present: conjuntiva pink, sclera anicteric - Neck Neck exam general surgery: Present: normal inspection, supple, trachea midline. Absent: lymphadenopathy - Respiratory Respiratory exam: Present: CTAB. Absent: accessory muscle use, rales, respiratory distress, rhonchi, wheezes - Cardiovascular Cardiovascular exam: Present: RRR, +S1, +S2. Absent: diastolic murmur, gallop, rubs, systolic murmur - GI/Abdominal GI/Abdominal exam: Present: normal bowel sounds, soft. Absent: distended, hepatomegaly, tenderness - Extremities Exam Extremities exam: Present: normal inspection, warm, radial pulses palpable and symmetrical. Absent: calf tenderness, cyanotic, pedal edema, tenderness - Neurological Exam Neurological exam: Present: alert, oriented X3, no focal deficits. Absent: facial droop, speech deficit - Skin Skin exam: Present: dry, intact, normal color, warm. Absent: rash Internal Medicine: Result - Labs CBC & Chem 7: 09/01/17 04:52 09/01/17 04:52 Labs: Short CBC 09/01/17 Range/Units 04:52 WBC 17.9 H D (4.3-11.1) K/mcL Hgb 11.5 L (12.9-16.9) g/dL Hct 36.0 L (37.5-50.1) % Plt Count 418 H (140-400) K/mcL [facility] 09/01/17 04:52 Sodium 136 Potassium 4.1 Chloride 103 Carbon Dioxide 22 L BUN 27 H Creatinine 1.32 H Glucose 151 H Calcium 9.2 - VTE Reasons for not Prescribing Prophylaxis: Not indicated-Anticoagulated or INR therapeutic Consult Discharge Plan - Plan Additional Instructions: admitted as inpatient. Referrals: Carlos Duncan DO [Primary Care Provider] -
[2017-09-02] MEDS: Levalbuterol Neb 1.25 MG/3 ML IH SCH ×4 (04:02→22:21)
[2017-09-02 05:59] LABS: Basophils # 0.1 K/mcL (0.0-0.2); Basophils % 0.3 %; Hematocrit 33.5 % (37.5-50.1); Immature Granulocytes % 1.6 % (0-4); Lymphocytes # 0.9 K/mcL (0.6-4.6); Lymphocytes % 4.8 %; Mean Corpuscular HGB Conc 32.8 g/dL (31.6-35.5); Mean Corpuscular Hemoglobin 29.6 pg (28.0-33.3); Mean Corpuscular Volume 90.3 fL (83.0-100.0); Monocytes % 5.7 %; Neutrophils # 15.7 K/mcL (1.6-8.9); Platelet Count 378 K/mcL (140-400); Red Blood Count 3.71 M/mcL (4.19-5.50); Red Cell Distribution Width 13.9 % (11.5-14.5); Segmented Neutrophils % 87.6 %
[2017-09-02 06:16] LABS: BUN/Creatinine Ratio 25 (6-26); Blood Urea Nitrogen 31 mg/dL (8-23); Calcium 8.9 mg/dL (8.6-10.3); Carbon Dioxide 25 mEq/L (23-29); Chloride 102 mEq/L (98-107); Glucose 140 mg/dL (70-105); Osmolality,Calculated 291 (280-300); Potassium 4.1 mEq/L (3.5-5.1); Sodium 136 mEq/L (136-145); eGFR For African Americans > 60 (> 60); eGFR For Non-African Americans 56 (> 60)
[2017-09-02] MEDS: Cholecalciferol (D-3) 1,000 UNIT TABLET PO SCH (08:00)
[2017-09-02] MEDS: MethylPREDNISolone 40 MG/ML VIAL IVP SCH (08:00)
[2017-09-02] MEDS: *HR* Amiodarone 200 MG TABLET PO SCH ×2 (08:00→21:42)
[2017-09-02] MEDS: hydroCHLOROthiazide 25 MG TABLET PO SCH (08:01)
[2017-09-02] MEDS: Apixaban 5 MG TABLET PO SCH ×2 (08:01→21:42)
[2017-09-02] MEDS: Primidone 50 MG TABLET PO SCH (08:01)
[2017-09-02] MEDS: Multivit/Ca/Min/Fe/FA 1 TAB TABLET PO SCH (08:02)
[2017-09-02] MEDS: Ascorbic Acid 500 MG TABLET PO SCH (08:02)
[2017-09-02] MEDS: Metoprolol XL (24 HR) Succ 25 MG TAB.ER.24H PO SCH (08:02)
--- NOTE | 2017-09-02 12:13 | Electrophysiology Consult Note ---
<Luda Groves - Last Filed: 09/02/17 12:51> Date of Encounter: 09/02/17 Time of Encounter: 10:00 Assessment and Plan (1) Atrial flutter Current Visit: Yes Status: Chronic Per cardiology: -A.flutter per ECG and telemetry. -HR controlled. -Currently on amiodarone 200mg (recommended for one month at last inpatient stay ), and toprol 75mg daily. -DCCV on 08/24/17 with conversion to SR, now back in a.flutter. -Reports symptomatic in a.flutter with increased shortness of breath. -Previously on rhythmol, stopped due to cardiomyopathy. -discussed and reviewed with Dr.John Altamirano, can consider repeat outpatient DCCV in a few weeks. Qualifiers: Atrial flutter type: unspecified Qualified Code(s): I48.92 - Unspecified atrial flutter (2) Cardiomyopathy Current Visit: Yes Status: Chronic Per cardiology: -TTE 08/2017 last admission with LVEF 30%, global hypokinesis. Suspected to be related to tachycardia . -Stress 08/22/17 negative for ischemia, possible prior inferior infarct. -TTE this admission with LVEF 45-50%. -On beta colin. Not on rubin/arb due to renal function. -Euvolemic on exam. -Will continue to monitor. Qualifiers: Cardiomyopathy type: unspecified Qualified Code(s): I42.9 - Cardiomyopathy , unspecified Discussion w patient/family: The assessment and plan as outlined above was discussed with the patient who expressed understanding and agreement. All questions were answered. Thank you for involving us in the care of your patient. Please call with any questions. Discussed and reviewed with Dr.John Altamirano. History of Present Illness Consult date: 09/02/17 Requesting physician: Ray Singh Consult reason: a.flutter Chief complaint: shortness of breath History of present illness: Mr. Vargas is a 71 year old male with a relevant past medical history of renal insufficiency, HTN, paroxysmal a.flutter, hyperlipidemia, tremors, and TIA. Patient was recently admitted and underwent DCCV with conversion to SR. Patient states he was home for 5 days. Patient states that on day 3 of being home, he could tell that he was going in and out of a.flutter. Patient reports on day 5, he could stay he was staying out of rhythm and was extremely short of breath. Patient states today shortness of breath is somewhat improved. Denies chest pain , denies palpitations or fluttering. Past Med Surg Social Fam HX - Past Medical History Attestation: Yes The following information was validated with the patient. Source: patient, old records reviewed Medical history: atrial fibrillation, cardiomyopathy, hypertension, TIA, other Psychiatric history: no psych history - Past Surgical History Surgical History: other - Social History Smoking Status: Never smoker Smokeless Tobacco Status: No Alcohol use: none Drug use: none - Family History Father Adopted: No Family Member Ethnicity: Non- Living Status: Hx Family Cardiac Disorders: Yes (cabg with stents) Medications and Allergies Amitriptyline [Elavil] 50 mg PO HS 01/30/16 [History] Omeprazole [PriLOSEC] 20 mg PO DAILY 01/30/16 [History] Primidone [Mysoline] 25 mg PO DAILY 01/30/16 [History] Tamsulosin [Flomax] 0.4 mg PO DAILY 01/30/16 [History] hydroCHLOROthiazide [Hydrochlorothiazide] 12.5 mg PO DAILY 01/30/16 [History] Apixaban [Eliquis] 5 mg PO BID #30 tablet 02/01/16 [Rx] Ascorbic Acid [Vitamin C] 500 mg PO DAILY 08/17/17 [History] Cholecalciferol (D-3) [Vitamin D] 1,000 unit PO DAILY 08/17/17 [History] Multivitamin [One Daily Multivitamin] 1 each PO DAILY 08/17/17 [History] Potassium 99 mg PO DAILY 08/17/17 [History] Turmeric Root Extract [Turmeric] 1,000 mg PO DAILY 08/17/17 [History] Ubidecarenone [Co Q-10] 200 mg PO DAILY 08/17/17 [History] Amiodarone [Cordarone] 200 mg PO BID #60 tablet 08/24/17 [Rx] Metoprolol XL (24 HR) Succ [Toprol Xl] 75 mg PO DAILY #45 tab.er.24h 08/24/17 [ Rx] predniSONE [PredniSONE] 10 mg PO DAILY #24 tablet 09/02/17 [Rx] 3 Allergy/AdvReac Type Severity Reaction Status Date / Time No Known Allergies Allergy Verified 08/17/17 12:32 All Systems Review: The remainder of the systems were reviewed and are negative - Cardiovascular Cardiovascular: as per HPI, dyspnea at rest, dyspnea on exertion, irregular heart rhythm Physical Examination Vital Signs, Last 4 Hours Temp Pulse Resp BP Pulse Ox 09/02/17 11:36 97.9 F 80 16 144/83 97 09/02/17 10:18 18 97 General: Conversant, No Apparent Distress HEENT: Atraumatic, Normocephaly, Mucus Membranes Moist Neck: No JVD, Normal carotid pulses Cardiac: Normal S1 and S2, No Murmur, Other (Regularly irregular ) Lungs: Normal Breath Sounds, No Wheeze, Rales, Rhonchi Neuro: Alert and responsive, No focal deficits noted Abdomen: Soft, Non-Tender Skin: No rashes noted on visualized skin Musculoskeletal: No Chest Wall Tenderness Extremities: No Clubbing, No Cyanosis, No Edema, Normal Pulses Results 09/02/17 05:15 09/02/17 05:15 Lab Results Active Medications Amiodarone HCl (Cordarone) 200 mg PO BID JENNY Stop: 03/01/18 21:01 Last Admin: 09/02/17 08:00 Dose: 200 mg Amitriptyline HCl (Elavil) 50 mg PO HS JENNY Stop: 03/01/18 21:01 Last Admin: 09/01/17 20:15 Dose: 50 mg Apixaban (Eliquis) 5 mg PO BID JENNY Stop: 03/01/18 21:01 Last Admin: 09/02/17 08:01 Dose: 5 mg Ascorbic Acid (Vitamin C) 500 mg PO DAILY JENNY Stop: 03/02/18 09:01 Last Admin: 09/02/17 08:02 Dose: 500 mg Hydrochlorothiazide (Hydrochlorothiazide) 12.5 mg PO DAILY JENNY Stop: 03/02/18 09:01 Last Admin: 09/02/17 08:01 Dose: 12.5 mg Levalbuterol HCl (Xopenex) 1.25 mg IH [id number] JENNY Stop: 03/01/18 22:01 Last Admin: 09/02/17 10:17 Dose: 1.25 mg Methylprednisolone (Solu-Medrol) 40 mg IVP DAILY JENNY Stop: 03/03/18 18:16 Last Admin: 09/02/17 08:00 Dose: 40 mg Metoprolol Succinate (Toprol Xl) 75 mg PO DAILY JENNY Stop: 03/02/18 09:01 Last Admin: 09/02/17 08:02 Dose: 75 mg Multivitamins/Calcium (Thera M Plus) 1 tab PO DAILY JENNY Stop: 03/02/18 09:01 Last Admin: 09/02/17 08:02 Dose: 1 tab Naloxone HCl (Narcan) 0.4 mg IVP Q2MIN PRN PRN Reason: SEE COMMENTS Stop: 03/01/18 18:06 Omeprazole (Prilosec) 20 mg PO DAILY JENNY PRN Reason: Protocol Stop: 03/02/18 09:01 Last Admin: 09/02/17 08:00 Dose: 20 mg Pharmacy Profile Note (Patient Taking Own Medication) 1 each PO DAILY JENNY Stop: 03/02/18 09:01 Last Admin: 09/01/17 08:12 Dose: Not Given Pharmacy Profile Note (Patient Taking Own Medication) 1 each PO DAILY JENNY Stop: 03/02/18 09:01 Last Admin: 09/01/17 08:12 Dose: Not Given Polyethylene Glycol (Miralax) 17 gm PO DAILY PRN PRN Reason: Constipation Stop: 03/02/18 17:02 Last Admin: 09/02/17 08:00 Dose: 17 gm Primidone (Mysoline) 25 mg PO DAILY JENNY Stop: 03/02/18 09:01 Last Admin: 09/02/17 08:01 Dose: 25 mg Tamsulosin HCl (Flomax) 0.4 mg PO DAILY JENNY PRN Reason: Protocol Stop: 03/02/18 09:01 Last Admin: 09/02/17 08:01 Dose: 0.4 mg Vitamin D (Vitamin D) 1,000 unit PO DAILY JENNY Stop: 03/02/18 09:01 Last Admin: 09/02/17 08:00 Dose: 1,000 unit Laboratory Tests 07/28/17 08/17/17 08/30/17 12:13 13:18 16:12 WBC Hgb Potassium Creatinine Magnesium 2.0 Troponin I < 0.03 TSH 5.181 08/30/17 08/31/17 09/02/17 22:55 05:15 05:15 WBC 18.0 H Hgb 11.0 L Potassium Creatinine Magnesium Troponin I < 0.03 < 0.03 TSH 09/02/17 05:15 WBC Hgb Potassium 4.1 Creatinine 1.26 Magnesium Troponin I TSH - Imaging and Cardiology Chest Xray: report reviewed Stress Test: report reviewed Echo: report reviewed - EKG Interpretation EKG results cardiology: personally reviewed (ECG with a.flutter, HR 66.), other (Telemetry reviewed with average HR previous 12 hours noted to be 90, a.flutter. PVCs noted.) Consult Discharge Plan - Plan Instructions: Prednisone (By mouth), Chronic Obstructive Pulmonary Disease (DC) Additional Instructions: Please follow up with cardiology and your PCP as scheduled. Return to the ER immediately if your symptoms return or worsen. Take your medications as directed and return to your normal diet and activities as tolerated. Referrals: Carlos Duncan DO [Primary Care Provider] - 09/08/17 10:00 am Prescriptions: predniSONE [PredniSONE] 10 mg PO DAILY #24 tablet <Pravin Altamirano - Last Filed: 09/03/17 13:33> Date of Encounter: 09/03/17 - Attending Attestation I have personally performed a face to face evaluation on this patient. I have reviewed and agree with the care plan. History and Exam by me shows: Recurrent AF/FL. Recently started on amio. Unfortunatley cannot use other antiarrythmic due to new cardiomyopathy. Hopefully this is tachycardia induced and will resolve with better heart rate control. Assessment and Plan Discussion w patient/family: The assessment and plan as outlined above was discussed with the patient and/or family members who expressed understanding and agreement. All questions were answered. Thank you for involving us in the care of your patient. Please call with any questions. History of Present Illness History of present illness: Mr. Vargas is a 71 year old male All Systems Review: The remainder of the systems were reviewed and are negative Physical Examination Vital Signs, Last 4 Hours Temp Pulse Resp BP Pulse Ox 09/03/17 10:59 97.3 F L 76 76 145/87 98 Results 09/02/17 05:15 09/02/17 05:15
[2017-09-02] MEDS: Potassium [Potassium] 99 MG PO SCH (13:51)
[2017-09-02] MEDS: Ubidecarenone [Co Q-10] 200 MG PO SCH (13:51)
--- NOTE | 2017-09-02 14:35 | Discharge Summary ---
- NOTES TO OUTPATIENT PROVIDER Notes to Outpatient Provider: Patient had mild leukocytosis on discharge, likely secondary to high dose IV steroids. Patient will need a follow-up CBC in the next 3-4 days to see if it is trending down. He did not have any signs of sepsis, no tachycardia or fever. Patient will be sent home on a prednisone taper for COPD exacerbation. Orders not resulted at time of discharge: Pending orders 08/31/17 08:24 Mycoplasma pneumoniae IgG IgM Routine Date of Encounter: 09/02/17 Time of Encounter: 10:05 - Discharge Diagnosis (1) COPD exacerbation Priority: Primary Status: Acute Comments: He denies any chest pain or palpitations. His lungs are clear and diminished today and he states that he feels that the steroids are making him jittery. I decreased the steroid dose to 40 mg IV daily and have transitioned him to po today. Patient will be sent home on a taper. Continue home medications (2) Near syncope Priority: Secondary Status: Acute Comments: Denies dizziness or near syncope at this time. Denies weakness, diaphoresis, SOB. Pt is being followed by cardiology for a-fib/flutter and appears to be symptomatic. Continue home medications and cards will consider outpatient cardioversion after discharge. Vitals stable, pt gait stable and steady. (3) HTN (hypertension) Priority: Secondary Status: Acute Comments: Well-controlled. Continue home medications. Qualifiers: Hypertension type: essential hypertension Qualified Code(s): I10 - Essential (primary) hypertension (4) Dyspnea on exertion Priority: Secondary Status: Acute Comments: Patient with dyspnea, CUMMINGS on admission. Likely related to COPD exacerbation, symptomatic with A. fib/flutter. Patient had an echocardiogram in July, that showed LVEF of 30% with global LV systolic dysfunction. Patient stress test on 08/22/17 was negative for ischemia. Limited echo today showed improved LVEF as well as LV systolic function. Patient reports the symptoms only lasted approximately 3-4 minutes, but were concerning and with associated lightheadedness and diaphoresis. Symptoms resolved with rest. Patient does have mildly elevated BNP, most likely due to demand ischemia from A. fib Chest x-ray negative for acute process. Patient is on room air. He denies shortness of breath with ambulation despite A. fib/A flutter. Cardiology recommends patient stay on current dose of amiodarone and follow up for possible outpatient cardioversion. (5) Atrial fibrillation Priority: Secondary Status: Chronic Comments: Chronic. Rate controlled. Continue amiodarone and Eliquis. Qualifiers: Atrial fibrillation type: chronic Qualified Code(s): I48.2 - Chronic atrial fibrillation (6) HLD (hyperlipidemia) Priority: Secondary Status: Acute Comments: Chronic. Continue home medications. Qualifiers: Qualified Code(s): E78.5 - Hyperlipidemia, unspecified (7) DVT prophylaxis Priority: Secondary Status: Acute Comments: Pt is anticoagulated on Eliquis (8) Elevated brain natriuretic peptide (BNP) level Priority: Secondary Status: Acute Comments: BNP 293. Likely elevated due to chronic A. fib and EF of 40-45% on Limited echo today. No trend to compare. Patient appears to be euvolemic, lungs are clear, no peripheral edema. Continue telemetry. Hospital course: Mr. Vargas is a 71 year old male with past medical history of TIA, hypertension , A. fib, peptic ulcer disease, hypertension, hyperlipidemia, COPD. She presented to the emergency department with brief episode of shortness of breath and diaphoresis prior to arrival. He reports episode lasted approximately 3-4 minutes was concerning, so he presented to the emergency department. Patient was recently cardioverted and discharge from the hospital a few weeks ago and has been switched to amiodarone. Patient with A. fib that is rate controlled, at times he does become symptomatic when he stands. Cardiology was consulted and have declined any medication changes and we will consider an outpatient cardioversion after discharge. Patient apical and radial were irregular rhythm this morning. Patient states that he is feeling better and he is ready for discharge. He is waiting to see Dr. Altamirano prior to discharge. Patient was also treated for COPD exacerbation and will continue his normal home medications as well as a prednisone taper. Patient has mild leukocytosis without fever or tachycardia, likely due to high-dose IV steroids. Recommend he follow up with primary care for repeat lab draw to see if it is trending down in the next few days. Patient is stable and appropriate for discharge. Discharge discussed with: patient - Time Spent with Patient Total time spent providing and/or coordinating discharge services: Less than 30 minutes - Discharge Medications Home Medications: Amitriptyline [Elavil] 50 mg PO HS 01/30/16 [History] Omeprazole [PriLOSEC] 20 mg PO DAILY 01/30/16 [History] Primidone [Mysoline] 25 mg PO DAILY 01/30/16 [History] Tamsulosin [Flomax] 0.4 mg PO DAILY 01/30/16 [History] hydroCHLOROthiazide [Hydrochlorothiazide] 12.5 mg PO DAILY 01/30/16 [History] Apixaban [Eliquis] 5 mg PO BID #30 tablet 02/01/16 [Rx] Ascorbic Acid [Vitamin C] 500 mg PO DAILY 08/17/17 [History] Cholecalciferol (D-3) [Vitamin D] 1,000 unit PO DAILY 08/17/17 [History] Multivitamin [One Daily Multivitamin] 1 each PO DAILY 08/17/17 [History] Potassium 99 mg PO DAILY 08/17/17 [History] Turmeric Root Extract [Turmeric] 1,000 mg PO DAILY 08/17/17 [History] Ubidecarenone [Co Q-10] 200 mg PO DAILY 08/17/17 [History] Amiodarone [Cordarone] 200 mg PO BID #60 tablet 08/24/17 [Rx] Metoprolol XL (24 HR) Succ [Toprol Xl] 75 mg PO DAILY #45 tab.er.24h 08/24/17 [ Rx] Allergies/Adverse Reactions: 3 Allergy/AdvReac Type Severity Reaction Status Date / Time No Known Allergies Allergy Verified 08/17/17 12:32 Date of admission: 08/30/17 17:44 Primary care physician: Carlos Duncan Consults: 09/01/17 18:07 Consult to Cardiology [CONS] Routine Comment: Consulting Provider: Cardiology Glady Reason for Consult: Recent cardioversion during last admission. Pt reports increasing SOB. Fluctuating between a-fib and a flutter with exertion. Echo completed yesterday, EF improved. Call Completed: No 09/02/17 14:20 Consult to Electrophysiology (EP) [CONS] Routine Consulting Provider: Electrophysiology Laina Reason for Consult: A-Flutter Call Completed: Yes Discharging clinician: Parvin Woods Anticipated date of discharge: 09/02/17 - Constitutional Vitals: Temp Pulse Resp BP Pulse Ox 97.9 F 80 16 144/83 97 09/02/17 11:36 09/02/17 11:36 09/02/17 11:36 09/02/17 11:36 09/02/17 11:36 General appearance: Present: cooperative, A&O X 3, pleasant, no acute distress, answers questions appropriately - Head Head exam: Present: atraumatic, normal inspection, normocephalic - Eye Eye exam: Present: normal appearance, conjuntiva pink, sclera anicteric - Neck Neck exam general surgery: Present: supple, trachea midline. Absent: lymphadenopathy, tenderness - Respiratory Respiratory exam: Present: CTAB. Absent: accessory muscle use, chest wall tenderness, rales, rhonchi, wheezes - Cardiovascular Cardiovascular exam: Present: RRR, +S1, +S2. Absent: diastolic murmur, gallop, rubs, systolic murmur - GI/Abdominal GI/Abdominal exam: Present: normal bowel sounds, soft, no peritoneal signs. Absent: distended, hepatomegaly, tenderness - Extremities Exam Extremities exam: Present: normal capillary refill, normal inspection, warm, radial pulses palpable and symmetrical. Absent: calf tenderness, cyanotic, pedal edema - Neurological Exam Neurological exam: Present: alert, oriented X3, no focal deficits. Absent: facial droop, speech deficit - Skin Skin exam: Present: dry, intact, normal color, warm. Absent: rash - Patient Status Disposition: Home, Self-Care Condition: Good Functional capacity at discharge: independent ambulation Overall status at discharge: patient is back to baseline - Discharge Instructions Follow Up With: Carlos Duncan DO [Primary Care Provider] - Additional Instructions: Please follow up with cardiology and your PCP as scheduled. Return to the ER immediately if your symptoms return or worsen. Take your medications as directed and return to your normal diet and activities as tolerated. - Diet and Activity Activity: increase activity as tolerated Diet: advance to your usual diet - VTE Reasons for not Prescribing Prophylaxis: Not indicated-Anticoagulated or INR therapeutic
[2017-09-03] MEDS: Levalbuterol Neb 1.25 MG/3 ML IH SCH ×3 (03:53→15:13)
[2017-09-03 08:17] LABS: Mycoplasma pneumoniae IgG 0.24 U/L (<=0.09)
[2017-09-03] MEDS: *HR* Amiodarone 200 MG TABLET PO SCH (08:28)
[2017-09-03] MEDS: Apixaban 5 MG TABLET PO SCH (08:28)
[2017-09-03] MEDS: hydroCHLOROthiazide 25 MG TABLET PO SCH (08:29)
[2017-09-03] MEDS: Ubidecarenone [Co Q-10] 200 MG PO SCH (08:29)
[2017-09-03] MEDS: Potassium [Potassium] 99 MG PO SCH (08:29)
[2017-09-03] MEDS: Multivit/Ca/Min/Fe/FA 1 TAB TABLET PO SCH (08:29)
[2017-09-03] MEDS: Primidone 50 MG TABLET PO SCH (08:29)
[2017-09-03] MEDS: Ascorbic Acid 500 MG TABLET PO SCH (08:30)
[2017-09-03] MEDS: Cholecalciferol (D-3) 1,000 UNIT TABLET PO SCH (08:30)
[2017-09-03] MEDS: Metoprolol XL (24 HR) Succ 25 MG TAB.ER.24H PO SCH (08:30)
--- NOTE | 2017-09-03 13:18 | Internal Med Progress Note ---
Date of Encounter: 09/03/17 Time of Encounter: 09:05 - Assessment and plan (1) COPD exacerbation Current Visit: Yes Status: Acute Assessment and plan: Mild acute exacerbation. Patient denies chest pain or palpitations. Lungs are clear and diminished. He denies productive cough. Continue steroid taper at home, continue other home COPD medications. (2) Near syncope Current Visit: Yes Status: Resolved Assessment and plan: Patient denies dizziness or syncope, no weakness or diaphoresis. He denies shortness of breath. He has been followed by cardiology for A. fib/flutter and they recommended continuing his current medications and following up for a possible outpatient cardioversion. Patient's gait is steady. He denies difficulty with ambulation. A. fib is rate controlled at this time. (3) HTN (hypertension) Current Visit: Yes Status: Acute Assessment and plan: Well-controlled. Continue home medications. Qualifiers: Hypertension type: essential hypertension Qualified Code(s): I10 - Essential (primary) hypertension (4) Dyspnea on exertion Current Visit: Yes Status: Acute Assessment and plan: Patient reports significant improvement states he feels better. Dyspnea on exertion likely related to COPD exacerbation and symptomatic A. fib/flutter. (5) Atrial fibrillation Current Visit: Yes Status: Chronic Assessment and plan: Chronic. Rate control. Continue amiodarone and anticoagulation. Cardiology is following and may consider outpatient cardioversion if necessary. Qualifiers: Atrial fibrillation type: chronic Qualified Code(s): I48.2 - Chronic atrial fibrillation (6) HLD (hyperlipidemia) Current Visit: Yes Status: Acute Assessment and plan: Chronic. Continue home medications. Qualifiers: Qualified Code(s): E78.5 - Hyperlipidemia, unspecified (7) DVT prophylaxis Current Visit: Yes Status: Acute Assessment and plan: Continue current anticoagulation with Eliquis. (8) Elevated brain natriuretic peptide (BNP) level Current Visit: Yes Status: Acute Assessment and plan: BNP likely elevated due to chronic A. fib, patient has Nutren to compare. He appears to be euvolemic, lungs are clear has no peripheral edema. Chest x-ray is negative for any acute cardiopulmonary process. He is being followed by cardiology. - Time Spent With Patient less than 15 minutes - Subjective Interval history: Patient was seen and assessed at bedside 09:05 AM. Currently denies any chest pain or shortness of breath. Pt states that he is feeling better and is ready to go home. Pt was discharged yesterday, but was waiting on a visit from hospice care sales consultant. Pt will be discharged today after he is seen by hospice care sales consultant. Denies n/v, diaphoresis, chest pain, SOB, headache, blurred vision. A-fib is rate controlled. - Constitutional Vitals: Temp Pulse Resp BP Pulse Ox 97.3 F L 76 76 145/87 98 09/03/17 10:59 09/03/17 10:59 09/03/17 10:59 09/03/17 10:59 09/03/17 10:59 General appearance: Present: cooperative, A&O X 3, pleasant, no acute distress, answers questions appropriately - Head Head exam: Present: atraumatic, normal inspection, normocephalic - Eye Eye exam: Present: normal appearance, conjuntiva pink, sclera anicteric - Neck Neck exam general surgery: Present: supple, trachea midline. Absent: lymphadenopathy - Respiratory Respiratory exam: Present: CTAB. Absent: accessory muscle use, chest wall tenderness, rales, respiratory distress, rhonchi, wheezes - Cardiovascular Cardiovascular exam: Present: RRR, +S1, +S2. Absent: diastolic murmur, gallop, rubs, systolic murmur - GI/Abdominal GI/Abdominal exam: Present: normal bowel sounds, soft. Absent: distended, hepatomegaly, tenderness - Extremities Exam Extremities exam: Present: normal capillary refill, normal inspection, warm, radial pulses palpable and symmetrical. Absent: calf tenderness, cyanotic, pedal edema, tenderness - Neurological Exam Neurological exam: Present: alert, oriented X3, no focal deficits. Absent: facial droop, speech deficit - Skin Skin exam: Present: dry, intact, normal color, warm. Absent: rash Internal Medicine: Result - Labs CBC & Chem 7: 09/02/17 05:15 09/02/17 05:15 - VTE Reasons for not Prescribing Prophylaxis: Not indicated-Anticoagulated or INR therapeutic Consult Discharge Plan - Plan Instructions: Prednisone (By mouth), Chronic Obstructive Pulmonary Disease (DC) Additional Instructions: Please follow up with cardiology and your PCP as scheduled. Return to the ER immediately if your symptoms return or worsen. Take your medications as directed and return to your normal diet and activities as tolerated. Referrals: Carlos Duncan DO [Primary Care Provider] - 09/08/17 10:00 am Prescriptions: predniSONE [PredniSONE] 10 mg PO DAILY #24 tablet
[2017-09-03 15:13] VITALS: BP 123/74
== END 2017-09-03 18:04 | disposition home or self-care (01) ==
LOC: 3BNU 15:41 → EMEROO 15:41 → 3BNU 18:00
PROVIDERS: ADMIT Internal Medicine; ATTEND Registered Nurse

== ENCOUNTER 2020-03-05 10:14 | Observation (INO) ==
[2020-03-05] MEDS ORDERED: Naloxone 0.4 MG/ML INJ IVP PRN (11:40)
[2020-03-05] MEDS: Gabapentin 300 MG CAPSULE PO SCH ×3 (16:07→21:35)
[2020-03-05] MEDS: Apixaban 5 MG TABLET PO SCH (21:34)
[2020-03-06] MEDS: Ascorbic Acid 500 MG TABLET PO SCH (08:25)
[2020-03-06] MEDS: Cholecalciferol (D-3) 1,000 UNIT (25MCG) TABLET PO SCH (08:25)
[2020-03-06] MEDS: Apixaban 5 MG TABLET PO SCH ×2 (08:25→21:32)
[2020-03-06] MEDS: Primidone 50 MG TABLET PO SCH (08:25)
[2020-03-06] MEDS: Multivit/Ca/Min/Fe/FA 1 TAB TABLET PO SCH (08:25)
[2020-03-06] MEDS: Gabapentin 300 MG CAPSULE PO SCH ×3 (08:26→21:32)
[2020-03-06] MEDS ORDERED: UBIDECARENONE 200 MG PO SCH (09:00)
[2020-03-06] MEDS ORDERED: TURMERIC ROOT EXTRACT 1000 MG PO SCH (09:00)
[2020-03-06] MEDS ORDERED: NON-FORMULARY MEDICATION 1 EACH EACH (Potassium 99 MG) PO SCH (09:00)
[2020-03-06] MEDS ORDERED: NON-FORMULARY MEDICATION 1 EACH EACH (Omega-3 Fatty Acids [Fish Oil] 300 MG) PO SCH (09:00)
[2020-03-07] MEDS: Ascorbic Acid 500 MG TABLET PO SCH (09:39)
[2020-03-07] MEDS: Multivit/Ca/Min/Fe/FA 1 TAB TABLET PO SCH (09:39)
[2020-03-07] MEDS: Cholecalciferol (D-3) 1,000 UNIT (25MCG) TABLET PO SCH (09:39)
[2020-03-07] MEDS: Gabapentin 300 MG CAPSULE PO SCH ×3 (09:39→21:42)
[2020-03-07] MEDS: Apixaban 5 MG TABLET PO SCH ×2 (09:39→21:42)
[2020-03-07] MEDS: Primidone 50 MG TABLET PO SCH (09:39)
[2020-03-07] MEDS: amLODIPine 5 MG TABLET PO SCH (15:45)
[2020-03-08 03:12] LABS: Basophils # 0.1 K/mcL (0.0-0.2); Basophils % 0.9 %; Eosinophils # 0.3 K/mcL (0.0-0.6); Eosinophils % 4.3 %; Hematocrit 35.1 % (37.5-50.1); Hemoglobin 11.3 g/dL (12.9-16.9); Immature Granulocytes % 0.1 % (0-4); Lymphocytes # 2.3 K/mcL (0.6-4.6); Lymphocytes % 29.8 %; Mean Corpuscular HGB Conc 32.2 g/dL (31.6-35.5); Mean Corpuscular Hemoglobin 28.3 pg (28.0-33.3); Mean Corpuscular Volume 87.8 fL (83.0-100.0); Mean Platelet Volume 10.4 fL (9.4-12.4); Monocytes # 1.1 K/mcL (0.0-1.3); Monocytes % 13.6 %; Platelet Count 187 K/mcL (140-400); Red Cell Distribution Width 13.5 % (11.5-14.5); Segmented Neutrophils % 51.3 %; White Blood Count 7.7 K/mcL (4.3-11.1)
[2020-03-08 03:31] LABS: BUN/Creatinine Ratio 21 (6-26); Blood Urea Nitrogen 24 mg/dL (8-23); Calcium 8.9 mg/dL (8.6-10.3); Carbon Dioxide 24 mEq/L (23-29); Chloride 106 mEq/L (98-107); Glucose 101 mg/dL (70-105); Magnesium 1.9 mg/dL (1.6-2.6); Osmolality,Calculated 288 (280-300); Potassium 3.8 mEq/L (3.5-5.1); Sodium 137 mEq/L (136-145); eGFR For African Americans > 60 (> 60); eGFR For Non-African Americans > 60 (> 60)
[2020-03-08] MEDS: Cholecalciferol (D-3) 1,000 UNIT (25MCG) TABLET PO SCH (08:34)
[2020-03-08] MEDS: Gabapentin 300 MG CAPSULE PO SCH (08:34)
[2020-03-08] MEDS: Primidone 50 MG TABLET PO SCH (08:34)
[2020-03-08] MEDS: amLODIPine 5 MG TABLET PO SCH (08:36)
[2020-03-08] MEDS: Ascorbic Acid 500 MG TABLET PO SCH (08:36)
[2020-03-08] MEDS: Multivit/Ca/Min/Fe/FA 1 TAB TABLET PO SCH (08:37)
[2020-03-08] MEDS: Apixaban 5 MG TABLET PO SCH (08:37)
[2020-03-08 10:58] VITALS: BP 134/73
== END 2020-03-08 14:36 | disposition home or self-care (01) ==
LOC: 3BNU
PROVIDERS: ADMIT Internal Medicine Clinical Cardiac Electrophysiology; ATTEND Internal Medicine Clinical Cardiac Electrophysiology